=== PATIENT | male | born 1945 | race African-American/Black ===

== ENCOUNTER → 2018-06-24 | Outpatient (CLI) | payer MEDICARE, MEDICAID ==
[~2018-06-24] MED LIST: ATOR10TA69 PO; BENA40TA9 PO; CLON0.2T PO; FURO40TA5 PO; HYDR-4134 PO; METO-385 PO; RANI150C12 PO
== END | disposition home or self-care (01) ==
LOC: RAD 13:36
PROVIDERS: ATTEND Neurological Surgery
DX: M54.2 Cervicalgia (principal)
CPT/HCPCS: 72052

== ENCOUNTER 2018-10-08 14:55 | Inpatient (IN) | payer MEDICARE, MEDICAID ==
[~2018-10-08] VITALS: Ht 185.4 cm; Wt 62.6 kg
[2018-10-08 15:59] LABS: BASOPHILS % 0.6 % (0.0-2.0); EOSINOPHILS % 0.6 % (0.0-5.0); HEMATOCRIT. 40.1 % (42.0-52.0); HEMOGLOBIN. 13.6 g/dL (14.0-18.0); LYMPHOCYTES % 24.8 % (20.0-50.0); MEAN CORPUSCULAR HEMOGLOBIN 30.2 pg (28.0-32.0); MEAN CORPUSCULAR VOLUME 88.9 fL (80.0-94.0); MEAN PLATELET VOLUME 9.2 fl (7.4-10.4); MONOCYTES % 11.5 % (2.0-8.0); NEUTROPHILS % 62.5 % (40.0-76.0); PLATELET 261 x1000/uL (130-400); RED BLOOD CELL COUNT 4.51 mill/uL (4.7-6.1); RED CELL DISTRIBUTION WIDTH 13.6 % (11.6-14.6)
[2018-10-08] MEDS ORDERED: DILTIAZEM HCL 30MG TABLET PO ONE (16:00)
[2018-10-08] MEDS ORDERED: ASPIRIN 81MG TABLET PO ONE (16:00)
[2018-10-08 16:06] LABS: CHLORIDE 104 mEq/L (98-107)
[2018-10-08 16:10] LABS: ETHANOL BLOOD < 10 mg/dL; INR 1.1; PARTIAL THROMBOPLASTIN TIME 31.3 sec (23.4-31.0); PROTHROMBIN TIME 10.6 sec (9.1-11.1)
[2018-10-08] MEDS ORDERED: ENOXAPARIN 80MG/0.8ML SYR SUBCUT ONE (17:00)
[2018-10-08] MEDS ORDERED: MORPHINE SULFATE 10MG/5ML ORAL SOLN UDC PO PRN (19:15)
[2018-10-08] MEDS ORDERED: NITROGLYCERIN 0.4MG TABLET SL SL PRN (19:15)
[2018-10-08] MEDS ORDERED: GUAIFENESIN 200MG/10ML SUGAR FREE UDC PO PRN (19:15)
[2018-10-08] MEDS ORDERED: TRAMADOL 50MG TABLET PO PRN (19:15)
[2018-10-08] MEDS ORDERED: MAGNESIUM/ALUMINUM HYDROXIDE/SIMETHICONE 30ML UDC PO PRN (19:15)
[2018-10-08] MEDS ORDERED: NA PHOS,M-B/NA PHOS,DI-BA ENEMA 118ML PR PRN (19:15)
[2018-10-08] MEDS ORDERED: ONDANSETRON HCL 4MG/2ML INJ IV PRN (19:15)
[2018-10-08] MEDS ORDERED: LORAZEPAM 1MG TABLET PO PRN (19:15)
[2018-10-08] MEDS ORDERED: IPRATROPIUM/ALBUTEROL 0.5-3(2.5)MG/3ML NEB INH PRN (19:15)
[2018-10-08] MEDS ORDERED: ZOLPIDEM TARTRATE 5MG TABLET PO PRN (19:15)
[2018-10-08] MEDS ORDERED: CLONIDINE 0.1MG TABLET PO PRN (19:15)
[2018-10-08] MEDS ORDERED: DOCUSATE SODIUM 100MG CAPSULE PO PRN (19:15)
[2018-10-08] MEDS ORDERED: ACETAMINOPHEN 325MG TABLET PO PRN (19:15)
[2018-10-08 21:53] VITALS: BP 142/97
[2018-10-09] VITALS: BP 123/90
[2018-10-09 00:24] LABS: CREATINE KINASE MB FRACTION 10.6 ng/mL (0.5-3.6)
[2018-10-09] MEDS: DILTIAZEM HCL 60MG TABLET PO SCH ×4 (00:46→17:12)
[2018-10-09] MEDS: METOPROLOL TARTRATE 25MG TABLET PO SCH ×3 (00:46→22:05)
[2018-10-09 04:00] VITALS: BP 133/73
[2018-10-09] MEDS: ENOXAPARIN 60MG/0.6ML SYR SUBCUT SCH ×2 (06:31→17:12)
[2018-10-09 06:49] LABS: CREATINE KINASE MB FRACTION 7.9 ng/mL (0.5-3.6)
[2018-10-09 08:00] VITALS: BP 112/77
[2018-10-09] MEDS: LISINOPRIL 20MG TABLET PO SCH ×2 (09:07→22:06)
[2018-10-09] MEDS: FAMOTIDINE 20MG TABLET PO SCH ×2 (09:07→22:06)
[2018-10-09] MEDS: ASPIRIN 325MG EC TABLET PO SCH (09:08)
[2018-10-09 12:00] VITALS: BP 121/69
[2018-10-09 16:00] VITALS: BP 133/80
[2018-10-09 20:00] VITALS: BP 124/74
[2018-10-09] MEDS: ATORVASTATIN CALCIUM 10MG TABLET PO SCH (22:05)
[2018-10-09 22:40] LABS: *AMPHETAMINES SCREEN URINE NEGATIVE (NEGATIVE); *BARBITURATES SCREEN URINE NEGATIVE (NEGATIVE); *BENZODIAZEPINES SCREEN URINE NEGATIVE (NEGATIVE); CANNABINOID URINE SCREEN PRESUMTIVE POSITIVE (NEGATIVE); METHADONE URINE SCREEN NEGATIVE (NEGATIVE); OPIATES URINE SCREEN NEGATIVE (NEGATIVE); PHENCYCLIDINE URINE SCREEN NEGATIVE (NEGATIVE)
[2018-10-09 22:41] LABS: *COCAINE SCREEN URINE NEGATIVE (NEGATIVE)
[2018-10-10] VITALS: BP 142/74
[2018-10-10 04:00] VITALS: BP 140/80
[2018-10-10] MEDS: DILTIAZEM HCL 60MG TABLET PO SCH ×4 (06:33→17:45)
[2018-10-10] MEDS: ENOXAPARIN 60MG/0.6ML SYR SUBCUT SCH (06:33)
[2018-10-10 07:52] LABS: BASOPHILS % 1.3 % (0.0-2.0); EOSINOPHILS % 1.3 % (0.0-5.0); HEMATOCRIT. 34.7 % (42.0-52.0); HEMOGLOBIN. 11.8 g/dL (14.0-18.0); LYMPHOCYTES % 31.4 % (20.0-50.0); MEAN CORPUSCULAR HEMOGLOBIN 30.2 pg (28.0-32.0); MEAN CORPUSCULAR VOLUME 88.7 fL (80.0-94.0); MEAN PLATELET VOLUME 10.7 fl (7.4-10.4); MONOCYTES % 13.1 % (2.0-8.0); NEUTROPHILS % 52.9 % (40.0-76.0); PLATELET 223 x1000/uL (130-400); RED BLOOD CELL COUNT 3.91 mill/uL (4.7-6.1); RED CELL DISTRIBUTION WIDTH 13.1 % (11.6-14.6)
[2018-10-10 08:00] VITALS: BP 123/73
[2018-10-10] MEDS: FAMOTIDINE 20MG TABLET PO SCH ×2 (09:06→21:24)
[2018-10-10] MEDS: ASPIRIN 325MG EC TABLET PO SCH (09:06)
[2018-10-10] MEDS: LISINOPRIL 20MG TABLET PO SCH ×2 (09:07→21:00)
[2018-10-10] MEDS: METOPROLOL TARTRATE 25MG TABLET PO SCH ×2 (09:07→21:00)
[2018-10-10 11:15] LABS: CHLORIDE 105 mEq/L (98-107)
[2018-10-10 11:32] LABS: CREATINE KINASE 122 IU/L (39-308); HDL CHOLESTEROL 35 mg/dL (40-59); LDL CHOLESTEROL 52 mg/dL (5-100)
[2018-10-10 11:36] LABS: CREATINE KINASE MB FRACTION 4.3 ng/mL (0.5-3.6)
[2018-10-10 12:00] VITALS: BP 127/74
[2018-10-10 16:00] VITALS: BP 117/74
[2018-10-10 20:10] VITALS: BP 97/59
[2018-10-10] MEDS: ATORVASTATIN CALCIUM 10MG TABLET PO SCH (21:24)
[2018-10-11 00:02] VITALS: BP 127/70
[2018-10-11] MEDS: DILTIAZEM HCL 60MG TABLET PO SCH ×4 (00:12→18:16)
[2018-10-11 04:00] VITALS: BP 117/69
[2018-10-11] MEDS: ENOXAPARIN 30MG/0.3ML SYR SUBCUT SCH (08:13)
[2018-10-11] MEDS: LISINOPRIL 20MG TABLET PO SCH ×2 (08:15→21:15)
[2018-10-11 08:16] VITALS: BP 140/76
[2018-10-11] MEDS: METOPROLOL TARTRATE 25MG TABLET PO SCH ×2 (08:16→21:17)
[2018-10-11] MEDS: FAMOTIDINE 20MG TABLET PO SCH ×2 (08:16→21:16)
[2018-10-11] MEDS: ASPIRIN 325MG EC TABLET PO SCH (08:16)
[2018-10-11 12:02] VITALS: BP 151/82
[2018-10-11 16:12] VITALS: BP 149/82
[2018-10-11 20:00] VITALS: BP 131/77
[2018-10-11] MEDS: ATORVASTATIN CALCIUM 10MG TABLET PO SCH (21:15)
[2018-10-12 00:05] VITALS: BP 128/76
[2018-10-12] MEDS: DILTIAZEM HCL 60MG TABLET PO SCH ×4 (01:01→19:14)
[2018-10-12 04:00] VITALS: BP 124/72
[2018-10-12] MEDS: LISINOPRIL 20MG TABLET PO SCH ×2 (08:53→20:19)
[2018-10-12] MEDS: FAMOTIDINE 20MG TABLET PO SCH ×2 (08:53→20:19)
[2018-10-12] MEDS: METOPROLOL TARTRATE 25MG TABLET PO SCH ×2 (08:53→20:18)
[2018-10-12] MEDS: ENOXAPARIN 30MG/0.3ML SYR SUBCUT SCH (08:54)
[2018-10-12] MEDS: ASPIRIN 325MG EC TABLET PO SCH (08:55)
[2018-10-12 14:32] VITALS: BP 136/76
[2018-10-12 20:00] VITALS: BP 140/73
[2018-10-12] MEDS: ATORVASTATIN CALCIUM 10MG TABLET PO SCH (20:18)
== END 2018-10-12 21:30 | DRG 281 ==
LOC: ER 15:35 → EDBEDREQ 15:49 → 7WST 17:09 → EDBEDREQTM 17:14 → EDBEDREQ 17:14 → SUPCPDRO 18:59 → ENRESERV 20:41
PROVIDERS: ADMIT Internal Medicine; ATTEND Internal Medicine
DX: I21.4 Non-ST elevation (NSTEMI) myocardial infarction (principal); I69.354 Hemiplegia and hemiparesis following cerebral infarction affecting left non-dominant side; E78.00 Pure hypercholesterolemia, unspecified; Z91.14 Patient's other noncompliance with medication regimen; I10 Essential (primary) hypertension; Z91.11 Patient's noncompliance with dietary regimen; R00.0 Tachycardia, unspecified; Z87.891 Personal history of nicotine dependence; Z91.011 Allergy to milk products; Z79.899 Other long term (current) drug therapy; J44.9 Chronic obstructive pulmonary disease, unspecified
CPT/HCPCS: 36415; 71045; 80061; 80305; 82550; 82553; 83036; 83880; 84484; 85379; 93005; 93306; 93970; 96372; 97162; 97166; 97530; 99285; A6261; G0482; J1650